=== PATIENT | male | born 2000 | race Caucasian/White ===

== ENCOUNTER 2021-04-03 12:17 | Emergency (ER) | payer OTHER ==
[~2021-04-03] VITALS: Ht 193 cm; Wt 246.8 kg
[2021-04-03] MEDS ORDERED: MECLIZINE HCL25 MG PO (15:19)
[2021-04-03 15:26] VITALS: BP 171/110
--- NOTE | 2021-04-04 10:01 | EKG ---
[place] [address] [employer] [facility] [place] [address] ELECTROCARDIOGRAM REPORT Name: CRISTELA NESS Room #: FABRICE Baird#: [id number] Admission: 04/03/21 Attend Phys: Discharge: 04/03/21 Date of : 89 Report #: [id number] [facility] ED Test Date: 2021-04-03 Test Time: 12:43:29 Pat Name: CRISTELA NESS Department: Room: Gender: M Senior Interior Designer: REGGIE : 2000 Requested By: Yuni Dubose Order Number: [id number] MD: Idris Skelton Measurements Intervals [place] Rate: 86 P: NC: QRS: 29 QRSD: 101 T: 10 QT: 352 QTc: 421 Interpretive Statements Sinus rhythm Low voltage, precordial leads No previous ECG available for comparison Electronically Signed On 04-04-2021 10:01:10 MACHINE CAPTAIN by Idris Skelton [email or web address] <ELECTRONICALLY SIGNED> By: Idris Skelton MD 04/04/21 1001 1243 1243 Idris [email or web address] MD /EPI
== END 2021-04-03 15:30 | disposition home or self-care (01) ==
LOC: EDBD 12:17 → ER 12:17
DX: R42 Dizziness and giddiness (principal); F41.9 Anxiety disorder, unspecified; F32.9 Major depressive disorder, single episode, unspecified; F12.90 Cannabis use, unspecified, uncomplicated